=== PATIENT | female | born 1965 | race Caucasian/White ===

== ENCOUNTER → 2017-10-04 | Outpatient (CLI) | payer OTHER ==
[~2017-10-04] MED LIST: ACET325 PO; CYCL10 PO; DIPH50 PO; HUMALOG KW200 UNIT/1 SC; HYDACE5 PO; IBUP200 PO; IBUP800; IBUP800 PO; INSULANPEN SC; LEVFLO500 PO; META800 PO; NAPR550 PO; OMEP20ER PO; OXYACE5T PO; OXYC5 PO; PRED10 PO; PROM25 PO; Percocet 5-3251 EACH PO; Prednisone20 MG PO; Prilosec Otc20 MG PO; QUET200 PO; Restoril15 MG PO; SULTRIDS PO; TAMS.4ER PO; TRAM50 PO; Ultram50 MG PO; Zithromax250 MG PO
[2017-10-04 15:15] LABS: Adenovirus F 40/41 Not Detected (NOT DETECT); Astrovirus Not Detected (NOT DETECT); Campylobacter Sp Not Detected (NOT DETECT); Cryptosporidium Not Detected (NOT DETECT); Cyclospora Cayetanensis Not Detected (NOT DETECT); E. Coli O157 Not Detected (NOT DETECT); Entamoeba Histolytica Not Detected (NOT DETECT); Enteroaggregative E. coli-EAEC Not Detected (NOT DETECT); Enteropathogenic E. coli-EPEC Not Detected (NOT DETECT); Enterotoxigenic E. coli-ETEC Not Detected (NOT DETECT); Giardia Lamblia Not Detected (NOT DETECT); Norovirus GI/GII Not Detected (NOT DETECT); Plesiomonas Shigelloides Not Detected (NOT DETECT); Rotavirus A Not Detected (NOT DETECT); Salmonella Sp Not Detected (NOT DETECT); Sapovirus Not Detected (NOT DETECT); Shiga Toxin-prod E. coli-STEC Not Detected (NOT DETECT); Shigella/Enteroin E. coli-EIEC Not Detected (NOT DETECT); Vibrio Cholerae Not Detected (NOT DETECT); Vibrio Sp Not Detected (NOT DETECT); Yersinia Enterocolitica Not Detected (NOT DETECT)
== END ==
LOC: LAB UCHC 06:30 → LAB SHORT 06:30 → LAB FUT 10-02 13:00 → EDSTATUS 10-02 13:00
PROVIDERS: Nurse Practitioner Adult Health
DX: R53.83 Other fatigue (principal); R19.7 Diarrhea, unspecified
CPT/HCPCS: 87507

== ENCOUNTER 2018-01-25 12:46 | Emergency (ER) | payer OTHER ==
[~2018-01-25] VITALS: Ht 147.3 cm; Wt 79.4 kg
[~2018-01-25 12:46] MED LIST changes: -HUMALOG KW200 UNIT/1 SC; -INSULANPEN SC; -LEVFLO500 PO; -PRED10 PO; -Prilosec Otc20 MG PO; -QUET200 PO; -TRAM50 PO; -Ultram50 MG PO
[2018-01-25] MEDS ORDERED: PROM25 PO (13:05)
[2018-01-25] MEDS ORDERED: QUET200 PO (13:05)
== END 2018-01-25 14:16 | disposition home or self-care (01) ==
LOC: ER 12:46
DX: L50.0 Allergic urticaria (principal); J44.9 Chronic obstructive pulmonary disease, unspecified; F17.200 Nicotine dependence, unspecified, uncomplicated; Z88.0 Allergy status to penicillin; Z88.5 Allergy status to narcotic agent; Z88.8 Allergy status to other drugs, medicaments and biological substances; Z79.899 Other long term (current) drug therapy
CPT/HCPCS: 36415; 96372; 99283; J1200

== ENCOUNTER 2018-01-31 22:52 | Emergency (ER) | payer OTHER ==
[~2018-01-31] VITALS: Ht 147.3 cm; Wt 79.4 kg
[~2018-01-31 22:52] MED LIST changes: +QUET200 PO
[2018-02-01] MEDS ORDERED: Ultram50 MG PO (16:13)
== END 2018-01-31 23:10 | disposition left against medical advice (07) ==
LOC: ER 22:52
DX: Z53.21 Procedure and treatment not carried out due to patient leaving prior to being seen by health care provider (principal)

== ENCOUNTER 2018-02-01 14:22 | Emergency (ER) | payer OTHER ==
[~2018-02-01] VITALS: Ht 147.3 cm; Wt 79.4 kg
[2018-02-01] MEDS ORDERED: Ultram50 MG PO (16:13)
== END 2018-02-01 16:32 | disposition home or self-care (01) ==
LOC: ER 14:22
DX: M79.661 Pain in right lower leg (principal); J44.9 Chronic obstructive pulmonary disease, unspecified; F17.200 Nicotine dependence, unspecified, uncomplicated; Z88.0 Allergy status to penicillin; Z88.5 Allergy status to narcotic agent; Z88.8 Allergy status to other drugs, medicaments and biological substances; Z79.899 Other long term (current) drug therapy
CPT/HCPCS: 93971; 99284

== ENCOUNTER 2018-07-24 15:43 | Inpatient (IN) | payer OTHER ==
[~2018-07-24] VITALS: Ht 147.3 cm; Wt 66.7 kg
[~2018-07-24 15:43] MED LIST changes: +HUMALOG KW200 UNIT/1 SC; +INSULANPEN SC; +LEVFLO500 PO; +PRED10 PO; +TRAM50 PO; +Ultram50 MG PO
[2018-07-24 16:22] LABS: BASOPHILS ABSOLUTE AUTO 0.04 K/mm3 (0.00-0.23); BASOPHILS PERCENT AUTO 0 % (0-2); EOSINOPHILS ABSOLUTE AUTO 0.18 K/mm3 (0.00-0.68); EOSINOPHILS PERCENT AUTO 2 % (0-6); IMMATURE GRAN ABSOLUTE AUTO 0.39 K/mm3 (0.00-0.10); IMMATURE GRAN PERCENT AUTO 3 % (0-1); LYMPHOCYTES ABSOLUTE AUTO 1.76 K/mm3 (0.84-5.20); LYMPHOCYTES PERCENT AUTO 15 % (21-46); MONOCYTES ABSOLUTE AUTO 0.66 K/mm3 (0.16-1.47); MONOCYTES PERCENT AUTO 6 % (4-13); Mean Corpuscular HGB 28.3 pg (26.0-34.0); Mean Corpuscular HGB Conc 30.3 g/dL (31.5-36.5); Mean Corpuscular Volume 94 fL (80-100); Mean Platelet Volume 9.7 fL (9.1-12.4); NEUTROPHILS ABSOLUTE AUTO 8.59 K/mm3 (1.96-9.15); NEUTROPHILS PERCENT AUTO 74 % (41-73); NRBC ABSOLUTE 0.04 K/mm3 (0.00-0.02); NRBC Auto 0.3 /100 WBC (0.0-0.2); Platelet Count 332 K/mm3 (150-400); RDW Coefficient Variation 19.9 % (11.7-14.2); RDW Standard Deviation 64.7 fL (35.1-46.3); Red Blood Cell Count 1.87 M/mm3 (3.80-5.20); White Blood Cell Count 11.62 K/mm3 (4.00-11.30)
[2018-07-24 16:27] LABS: Hematocrit 17.5 % (33.0-51.0); Hemoglobin 5.3 g/dL (11.5-16.0)
[2018-07-24 16:53] LABS: International Normalized Ratio 1.02; Prothrombin Time Results 10.5 Sec (9.7-11.5)
[2018-07-24 17:18] LABS: Alanine Aminotransfer (ALT/SGP 203 U/L (12-78); Albumin, Blood 2.2 g/dL (3.4-5.0); Albumin/Globulin Ratio 0.6 (0.8-1.8); Alk Phos 101 U/L (50-136); Anion Gap 10 mmol/L (6-16); Aspartate Aminotrans (AST/SGOT 233 U/L (12-37); Bilirubin, Total 0.3 mg/dL (0.1-1.0); Blood Urea Nitrogen 26 mg/dL (8-24); CO2, Blood 22 mmol/L (21-32); Calcium, Blood 7.9 mg/dL (8.5-10.1); Chloride, Blood 114 mmol/L (98-108); Globulin, Blood 3.7 g/dL (2.2-4.0); Glomerular Filtration Rate >60 (60-); Glucose, Blood 111 mg/dL (70-99); Sodium, Blood 146 mmol/L (136-145); Total Protein, Blood 5.9 g/dL (6.4-8.2)
[2018-07-24] MEDS ORDERED: Prilosec Otc20 MG PO (20:31)
[2018-07-24 21:23] LABS: U Amphetamine Screen Not Detected; U Barbituate Screen Not Detected; U Benzodiazapine Screen Not Detected; U Buprenorphine Screen Not Detected; U Cannabinoids Screen Not Detected; U Cocaine Screen Not Detected; U Methadone Screen Not Detected; U Methamphetamine Screen DETECTED; U Opiates Screen Not Detected; U Oxycodone Screen DETECTED; U Phencyclidine Screen Not Detected; U Propoxyphene Screen Not Detected
[2018-07-24 23:30] LABS: Influenza A Negative (NEGATIVE); Influenza B Negative (NEGATIVE)
[2018-07-25 07:00] LABS: Hematocrit 25.4 % (33.0-51.0); Hemoglobin 8.1 g/dL (11.5-16.0)
[2018-07-25 07:20] LABS: Alanine Aminotransfer (ALT/SGP 200 U/L (12-78); Albumin/Globulin Ratio 0.6 (0.8-1.8); Alk Phos 92 U/L (50-136); Anion Gap 7 mmol/L (6-16); Aspartate Aminotrans (AST/SGOT 214 U/L (12-37); Bilirubin, Total 0.7 mg/dL (0.1-1.0); Blood Urea Nitrogen 14 mg/dL (8-24); Bun/Creatinine Ratio 19.9 (12.0-20.0); CO2, Blood 22 mmol/L (21-32); Calcium, Blood 7.5 mg/dL (8.5-10.1); Chloride, Blood 115 mmol/L (98-108); Globulin, Blood 3.4 g/dL (2.2-4.0); Glomerular Filtration Rate >60 (60-); Glucose, Blood 85 mg/dL (70-99); Potassium, Blood 4.5 mmol/L (3.5-5.5); Sodium, Blood 144 mmol/L (136-145); Total Protein, Blood 5.4 g/dL (6.4-8.2)
[2018-07-25 13:07] LABS: Hemoglobin 8.1 g/dL (11.5-16.0)
[2018-07-25 17:39] LABS: Hemoglobin 8.1 g/dL (11.5-16.0)
[2018-07-25 23:12] LABS: Hematocrit 24.8 % (33.0-51.0); Hemoglobin 7.9 g/dL (11.5-16.0)
[2018-07-26 06:12] LABS: Hematocrit 24.6 % (33.0-51.0); Hemoglobin 7.9 g/dL (11.5-16.0)
[2018-07-26 06:30] LABS: Alanine Aminotransfer (ALT/SGP 225 U/L (12-78); Albumin/Globulin Ratio 0.6 (0.8-1.8); Alk Phos 129 U/L (50-136); Anion Gap 7 mmol/L (6-16); Aspartate Aminotrans (AST/SGOT 206 U/L (12-37); Bilirubin, Total 0.5 mg/dL (0.1-1.0); Blood Urea Nitrogen 11 mg/dL (8-24); Bun/Creatinine Ratio 14.6 (12.0-20.0); CO2, Blood 26 mmol/L (21-32); Calcium, Blood 7.6 mg/dL (8.5-10.1); Chloride, Blood 111 mmol/L (98-108); Creatinine, Blood 0.75 mg/dL (0.40-1.00); Globulin, Blood 3.6 g/dL (2.2-4.0); Glomerular Filtration Rate >60 (60-); Glucose, Blood 112 mg/dL (70-99); Potassium, Blood 3.7 mmol/L (3.5-5.5); Sodium, Blood 144 mmol/L (136-145); Total Protein, Blood 5.6 g/dL (6.4-8.2)
[2018-07-26 12:58] LABS: Hematocrit 24.9 % (33.0-51.0); Hemoglobin 7.9 g/dL (11.5-16.0)
[2018-07-27 05:08] LABS: Hematocrit 23.8 % (33.0-51.0); Hemoglobin 7.4 g/dL (11.5-16.0)
[2018-07-27 05:21] LABS: International Normalized Ratio 1.04; Prothrombin Time Results 10.7 Sec (9.7-11.5)
[2018-07-27 11:49] LABS: Hematocrit 25.2 % (33.0-51.0); Hemoglobin 7.7 g/dL (11.5-16.0)
[2018-07-27 22:51] LABS: Hematocrit 24.9 % (33.0-51.0); Hemoglobin 7.7 g/dL (11.5-16.0)
[2018-07-28 05:16] LABS: Hematocrit 23.3 % (33.0-51.0); Hemoglobin 7.1 g/dL (11.5-16.0)
[2018-07-28 10:26] LABS: Hematocrit 25.5 % (33.0-51.0); Hemoglobin 7.8 g/dL (11.5-16.0)
[2018-07-29 17:05] LABS: HCV LOG10 4.418 (.); HEPATITIS C QUANTITATION 26200 IU/mL (.)
== END 2018-07-28 14:29 | disposition home or self-care (01) | DRG 377 ==
LOC: ER 15:43 → PCU 15:44 → MEDS 07-25 15:02 → PCU 07-25 15:03 → MEDS 07-27 21:35 → ENPENDDIS 07-28 12:25 → MEDS 07-28 14:29
PROVIDERS: Emergency Medicine; Internal Medicine; Internal Medicine Gastroenterology; Physician Assistant
PROC: 0DB68ZX Excision of Stomach, Via Natural or Artificial Opening Endoscopic, Diagnostic (ICD-10-PCS; 2018-07-25)
PROC: 0DBA8ZX Excision of Jejunum, Via Natural or Artificial Opening Endoscopic, Diagnostic (ICD-10-PCS; 2018-07-25)
PROC: 30233N1 Transfusion of Nonautologous Red Blood Cells into Peripheral Vein, Percutaneous Approach (ICD-10-PCS; 2018-07-25)
PROC: 0DB98ZX Excision of Duodenum, Via Natural or Artificial Opening Endoscopic, Diagnostic (ICD-10-PCS; principal; 2018-07-25 16:00)
DX: K92.2 Gastrointestinal hemorrhage, unspecified (principal); J13 Pneumonia due to Streptococcus pneumoniae; D62 Acute posthemorrhagic anemia; R78.81 Bacteremia; R74.0 Nonspecific elevation of levels of transaminase and lactic acid dehydrogenase [LDH]; G89.29 Other chronic pain; E87.6 Hypokalemia; F17.210 Nicotine dependence, cigarettes, uncomplicated; J44.9 Chronic obstructive pulmonary disease, unspecified; R00.0 Tachycardia, unspecified; B19.20 Unspecified viral hepatitis C without hepatic coma; F15.10 Other stimulant abuse, uncomplicated
CPT/HCPCS: 36415; 36430; 71046; 80053; 81025; 82272; 82947; 83605; 85014; 85018; 85025; 85610; 86850; 86870; 86900; 86901; 86920; 87040; 87522; 87804; 93005; 93010; 96361; 96365; 96366; 96367; 96368; 96376; 99285-25; C9113; G0378; J0696; J1885; J1956; J2405; J3480; J7030; J7050; J7120; P9016

== ENCOUNTER 2018-10-17 18:37 | Observation (INO) | payer OTHER ==
[~2018-10-17] VITALS: Ht 147.3 cm; Wt 59.2 kg
[~2018-10-17 18:37] MED LIST changes: +Prilosec Otc20 MG PO
[2018-10-17] MEDS ORDERED: ACET325 PO (21:39)
[2018-10-17] MEDS ORDERED: IRON150C PO (21:39)
[2018-10-18 08:37] LABS: Hematocrit 44.3 % (33.0-51.0); Hemoglobin 14.1 g/dL (11.5-16.0); Mean Corpuscular HGB 26.6 pg (26.0-34.0); Mean Corpuscular HGB Conc 31.8 g/dL (31.5-36.5); Mean Corpuscular Volume 83 fL (80-100); Mean Platelet Volume 9.3 fL (9.1-12.4); Platelet Count 333 K/mm3 (150-400); RDW Coefficient Variation 14.1 % (11.7-14.2); RDW Standard Deviation 42.7 fL (35.1-46.3); Red Blood Cell Count 5.31 M/mm3 (3.80-5.20)
[2018-10-18 09:04] LABS: Alanine Aminotransfer (ALT/SGP 22 U/L (12-78); Albumin, Blood 3.9 g/dL (3.4-5.0); Albumin/Globulin Ratio 0.8 (0.8-1.8); Alk Phos 123 U/L (50-136); Anion Gap 12 mmol/L (6-16); Aspartate Aminotrans (AST/SGOT 21 U/L (12-37); Bilirubin, Total 0.5 mg/dL (0.1-1.0); Blood Urea Nitrogen 16 mg/dL (8-24); Bun/Creatinine Ratio 23.3 (12.0-20.0); CO2, Blood 22 mmol/L (21-32); Calcium, Blood 9.6 mg/dL (8.5-10.1); Chloride, Blood 113 mmol/L (98-108); Creatinine, Blood 0.69 mg/dL (0.40-1.00); Globulin, Blood 4.8 g/dL (2.2-4.0); Glomerular Filtration Rate >60 (60-); Glucose, Blood 67 mg/dL (70-99); Potassium, Blood 2.7 mmol/L (3.5-5.5); Sodium, Blood 147 mmol/L (136-145); Total Protein, Blood 8.7 g/dL (6.4-8.2)
--- NOTE | 2018-10-18 10:36 | NUR ---
INTO SDS VIA [employer].PT APPEARS ANXIOUS-VERY TALKATIVE. HISTORY AND ALLERGIES REVIEWED. NPO STATUS CONFIRMED.
--- NOTE | 2018-10-18 10:54 | NUR ---
10/18/18 1054 Katy Mcintyre History, Chart, Medications and Allergies reviewed before start of procedure. MAC CASE WITH DR. DUARTE
[2018-10-18] MEDS ORDERED: OMEPRAZOLE MAGN20 MG PO (16:17)
--- NOTE | 2018-10-18 16:18 | NUR ---
SUMMARY/DISCHARGE THIS AM PT WAS ACTIVELY VOMITING CLEAR WATERY FLUID, DX ESOPHAGEAL FOREIGN BODY, SHE STATE PEICE OF CHICKEN STUCK IN HER THROAT. SHE TOOK A SHOWER, STATE RESOLVED. DR IQBAL IN TO SEE HER STATE NEED FOR EGD TO DETERMINE POSSIBLE CAUSE OF BLOCKAGE. BACK TO ROOM, DAY SKEIN SPOOLER STATE NO BLOCKAGE FOUND, VSS. SHE HAS BEEN TOLERATING FL, DR IQBAL BACK TO SEE HER STATE SHE MAY GO HOME FROM [facility], CAUTION HER TO AVOID MEATS FOR A FEW DAYS & EAT SOFT FOODS. DR KENDRICK IN THIS AFTERNOON TO PROVIDE D/C ORDER. IV D/C INTACT. D/C INSTRUCT PROVIDED. DR IQBAL CALL IN NEW SCR[facility] TO [facility]/PT REQUEST.
== END 2018-10-18 16:49 | disposition home or self-care (01) ==
LOC: ER 18:37 → MEDS 18:38 → ER 10-18 05:04 → MEDS 10-18 05:07 → ENPENDDIS 10-18 15:53 → MEDS 10-18 16:49
PROVIDERS: Internal Medicine Gastroenterology; ADMIT Internal Medicine
PROC: 0DJ08ZZ Inspection of Upper Intestinal Tract, Via Natural or Artificial Opening Endoscopic (ICD-10-PCS; principal; 2018-10-18 10:00)
DX: T18.128A Food in esophagus causing other injury, initial encounter (principal); K29.70 Gastritis, unspecified, without bleeding; K22.10 Ulcer of esophagus without bleeding; J44.9 Chronic obstructive pulmonary disease, unspecified; B19.20 Unspecified viral hepatitis C without hepatic coma; F17.210 Nicotine dependence, cigarettes, uncomplicated; Z88.0 Allergy status to penicillin; Z88.6 Allergy status to analgesic agent; Z88.5 Allergy status to narcotic agent; Z88.8 Allergy status to other drugs, medicaments and biological substances; Z79.899 Other long term (current) drug therapy; Z85.41 Personal history of malignant neoplasm of cervix uteri
CPT/HCPCS: 74220; 80053; 85027; 96374; 96375; 96376; 99284-25; G0378; J1610; J2270; J2405; J7030; J7120

== ENCOUNTER 2018-11-24 18:33 | Emergency (ER) | payer OTHER ==
[~2018-11-24] VITALS: Ht 147.3 cm; Wt 63.5 kg
[~2018-11-24 18:33] MED LIST changes: +Augmentin 875-1 EACH PO; +IRON150C PO; +OMEPRAZOLE MAGN20 MG PO
[2018-11-25] MEDS ORDERED: LIDO700A20 TOP (14:30)
[2018-11-25] MEDS ORDERED: ONDA4ODT MM (14:30)
[2018-11-25] MEDS ORDERED: Prednisone20 MG PO (14:37)
== END 2018-11-24 20:14 | disposition left against medical advice (07) ==
LOC: ER 18:33
DX: Z53.21 Procedure and treatment not carried out due to patient leaving prior to being seen by health care provider (principal); M54.9 Dorsalgia, unspecified; M79.606 Pain in leg, unspecified

== ENCOUNTER 2018-11-25 13:31 | Emergency (ER) | payer OTHER ==
[~2018-11-25] VITALS: Ht 147.3 cm; Wt 61.7 kg
[2018-11-25] MEDS ORDERED: LIDO700A20 TOP (14:30)
[2018-11-25] MEDS ORDERED: ONDA4ODT MM (14:30)
[2018-11-25] MEDS ORDERED: Prednisone20 MG PO (14:37)
== END 2018-11-25 14:50 | disposition home or self-care (01) ==
LOC: ER 13:31
DX: M25.552 Pain in left hip (principal); J44.9 Chronic obstructive pulmonary disease, unspecified; F17.210 Nicotine dependence, cigarettes, uncomplicated; Z86.19 Personal history of other infectious and parasitic diseases; Z88.6 Allergy status to analgesic agent; Z88.8 Allergy status to other drugs, medicaments and biological substances; Z79.899 Other long term (current) drug therapy
CPT/HCPCS: 73502; 96372; 99283-25; J1885

== ENCOUNTER → 2019-03-26 | Outpatient (CLI) | payer OTHER ==
[~2019-03-26] MED LIST changes: +LIDO700A20 TOP; +ONDA4ODT MM
[2019-03-26 15:29] LABS: BASOPHILS ABSOLUTE AUTO 0.07 K/mm3 (0.00-0.23); BASOPHILS PERCENT AUTO 1 % (0-2); EOSINOPHILS ABSOLUTE AUTO 0.15 K/mm3 (0.00-0.68); EOSINOPHILS PERCENT AUTO 2 % (0-6); Hemoglobin 13.7 g/dL (11.5-16.0); IMMATURE GRAN ABSOLUTE AUTO 0.05 K/mm3 (0.00-0.10); IMMATURE GRAN PERCENT AUTO 1 % (0-1); LYMPHOCYTES ABSOLUTE AUTO 0.97 K/mm3 (0.84-5.20); LYMPHOCYTES PERCENT AUTO 11 % (21-46); MONOCYTES PERCENT AUTO 8 % (4-13); Mean Corpuscular HGB 29.4 pg (26.0-34.0); Mean Corpuscular HGB Conc 33.4 g/dL (31.5-36.5); Mean Corpuscular Volume 88 fL (80-100); Mean Platelet Volume 9.6 fL (9.1-12.4); NEUTROPHILS ABSOLUTE AUTO 7.12 K/mm3 (1.96-9.15); NEUTROPHILS PERCENT AUTO 79 % (41-73); Platelet Count 295 K/mm3 (150-400); RDW Coefficient Variation 13.5 % (11.7-14.2); RDW Standard Deviation 43.3 fL (35.1-46.3); Red Blood Cell Count 4.66 M/mm3 (3.80-5.20); White Blood Cell Count 9.06 K/mm3 (4.00-11.30)
[2019-03-26 15:40] LABS: Albumin, Blood 2.8 g/dL (3.4-5.0); Albumin/Globulin Ratio 0.5 (0.8-1.8); Bilirubin, Total 0.7 mg/dL (0.1-1.0); Bun/Creatinine Ratio 13.1 (12.0-20.0); Creatinine, Blood 0.99 mg/dL (0.40-1.00); Globulin, Blood 5.6 g/dL (2.2-4.0); Potassium, Blood 3.3 mmol/L (3.5-5.5); Total Protein, Blood 8.4 g/dL (6.4-8.2)
== END | disposition home or self-care (01) ==
LOC: LAB EV 15:22 → LAB SHORT 15:22
PROVIDERS: Family Medicine
DX: N39.0 Urinary tract infection, site not specified (principal)
CPT/HCPCS: 80053; 85025; 87077; 87086; 87186

== ENCOUNTER 2019-04-23 15:49 | Emergency (ER) | payer OTHER ==
[~2019-04-23] VITALS: Ht 147.3 cm; Wt 60.8 kg
[2019-04-23] MEDS ORDERED: Percocet 5-3251 EACH PO (17:11)
== END 2019-04-23 17:32 | disposition home or self-care (01) ==
LOC: ER 15:49
DX: M17.11 Unilateral primary osteoarthritis, right knee (principal); F17.210 Nicotine dependence, cigarettes, uncomplicated; J44.9 Chronic obstructive pulmonary disease, unspecified; Z88.5 Allergy status to narcotic agent; Z88.8 Allergy status to other drugs, medicaments and biological substances; Z85.41 Personal history of malignant neoplasm of cervix uteri
CPT/HCPCS: 73564; 99283-25

== ENCOUNTER 2019-05-28 14:22 | Emergency (ER) | payer OTHER ==
[~2019-05-28] VITALS: Ht 147.3 cm; Wt 59.0 kg
[2019-05-28] MEDS ORDERED: Ultram50 MG PO (15:34)
== END 2019-05-28 15:43 | disposition home or self-care (01) ==
LOC: ER 14:22
DX: S90.31XA Contusion of right foot, initial encounter (principal); F17.200 Nicotine dependence, unspecified, uncomplicated; Z85.41 Personal history of malignant neoplasm of cervix uteri; Z88.0 Allergy status to penicillin; Z88.5 Allergy status to narcotic agent; Z88.8 Allergy status to other drugs, medicaments and biological substances; X58.XXXA Exposure to other specified factors, initial encounter
CPT/HCPCS: 73630; 99283-25; A9270-GY

== ENCOUNTER 2019-06-23 18:34 | Emergency (ER) | payer OTHER ==
[~2019-06-23] VITALS: Ht 147.3 cm; Wt 59.9 kg
[2019-06-23 19:12] LABS: BASOPHILS ABSOLUTE AUTO 0.08 K/mm3 (0.00-0.23); BASOPHILS PERCENT AUTO 1 % (0-2); EOSINOPHILS ABSOLUTE AUTO 0.25 K/mm3 (0.00-0.68); EOSINOPHILS PERCENT AUTO 3 % (0-6); Hematocrit 42.5 % (33.0-51.0); Hemoglobin 13.5 g/dL (11.5-16.0); IMMATURE GRAN ABSOLUTE AUTO 0.03 K/mm3 (0.00-0.10); IMMATURE GRAN PERCENT AUTO 0 % (0-1); LYMPHOCYTES PERCENT AUTO 22 % (21-46); MONOCYTES ABSOLUTE AUTO 0.71 K/mm3 (0.16-1.47); MONOCYTES PERCENT AUTO 8 % (4-13); Mean Corpuscular HGB 28.6 pg (26.0-34.0); Mean Corpuscular HGB Conc 31.8 g/dL (31.5-36.5); Mean Corpuscular Volume 90 fL (80-100); Mean Platelet Volume 9.8 fL (9.1-12.4); NEUTROPHILS ABSOLUTE AUTO 6.24 K/mm3 (1.96-9.15); NEUTROPHILS PERCENT AUTO 66 % (41-73); Platelet Count 320 K/mm3 (150-400); RDW Coefficient Variation 13.8 % (11.7-14.2); RDW Standard Deviation 46.3 fL (35.1-46.3); Red Blood Cell Count 4.72 M/mm3 (3.80-5.20); White Blood Cell Count 9.41 K/mm3 (4.00-11.30)
[2019-06-23 19:42] LABS: Alanine Aminotransfer (ALT/SGP 133 U/L (12-78); Albumin, Blood 3.1 g/dL (3.4-5.0); Albumin/Globulin Ratio 0.6 (0.8-1.8); Alk Phos 130 U/L (50-136); Anion Gap 8 mmol/L (6-16); Aspartate Aminotrans (AST/SGOT 79 U/L (12-37); Bilirubin, Total 0.3 mg/dL (0.1-1.0); Blood Urea Nitrogen 11 mg/dL (8-24); Bun/Creatinine Ratio 13.5 (12.0-20.0); CO2, Blood 22 mmol/L (21-32); Calcium, Blood 8.8 mg/dL (8.5-10.1); Chloride, Blood 107 mmol/L (98-108); Creatinine, Blood 0.82 mg/dL (0.40-1.00); Globulin, Blood 4.9 g/dL (2.2-4.0); Glomerular Filtration Rate >60 (60-); Glucose, Blood 112 mg/dL (70-99); Potassium, Blood 3.6 mmol/L (3.5-5.5); Sodium, Blood 137 mmol/L (136-145); Troponin I <0.015 ng/mL (0.000-0.040)
[2019-06-23] MEDS ORDERED: Levaquin500 MG PO (23:05)
== END 2019-06-23 23:34 | disposition home or self-care (01) ==
LOC: ER 18:34
PROVIDERS: Physician Assistant
DX: J18.9 Pneumonia, unspecified organism (principal); F17.210 Nicotine dependence, cigarettes, uncomplicated; Z85.41 Personal history of malignant neoplasm of cervix uteri; Z88.0 Allergy status to penicillin; Z88.5 Allergy status to narcotic agent; Z88.8 Allergy status to other drugs, medicaments and biological substances; Z79.899 Other long term (current) drug therapy
CPT/HCPCS: 36415; 71046; 71260; 80053; 84484; 85025; 85379; 93005; 93010; 96374-59; 96375-59; 99285-25; A9270; A9270-GY; J2405; J3010; Q9967

== ENCOUNTER 2020-05-24 09:45 | Emergency (ER) | payer OTHER ==
[~2020-05-24] VITALS: Ht 177.8 cm; Wt 70.3 kg
[~2020-05-24 09:45] MED LIST changes: +Levaquin500 MG PO
[2020-05-24] MEDS ORDERED: TEMAZEPAM15 MG PO (10:00)
[2020-05-24] MEDS ORDERED: Flovent Disku100 MCG IH (10:02)
[2020-05-24] MEDS ORDERED: Ventolin/Prove6.7 GM INH (10:02)
[2020-05-24 12:01] LABS: BASOPHILS ABSOLUTE AUTO 0.07 K/mm3 (0.00-0.23); BASOPHILS PERCENT AUTO 1 % (0-2); EOSINOPHILS PERCENT AUTO 1 % (0-6); Hematocrit 39.1 % (33.0-51.0); Hemoglobin 12.3 g/dL (11.5-16.0); IMMATURE GRAN ABSOLUTE AUTO 0.05 K/mm3 (0.00-0.10); IMMATURE GRAN PERCENT AUTO 1 % (0-1); LYMPHOCYTES ABSOLUTE AUTO 1.61 K/mm3 (0.84-5.20); LYMPHOCYTES PERCENT AUTO 19 % (21-46); MONOCYTES ABSOLUTE AUTO 0.73 K/mm3 (0.16-1.47); MONOCYTES PERCENT AUTO 9 % (4-13); Mean Corpuscular HGB 28.4 pg (26.0-34.0); Mean Corpuscular HGB Conc 31.5 g/dL (31.5-36.5); Mean Corpuscular Volume 90 fL (80-100); Mean Platelet Volume 10.1 fL (9.1-12.4); NEUTROPHILS ABSOLUTE AUTO 5.98 K/mm3 (1.96-9.15); NEUTROPHILS PERCENT AUTO 70 % (41-73); Platelet Count 180 K/mm3 (150-400); RDW Coefficient Variation 13.1 % (11.7-14.2); RDW Standard Deviation 42.8 fL (35.1-46.3); Red Blood Cell Count 4.33 M/mm3 (3.80-5.20); White Blood Cell Count 8.54 K/mm3 (4.00-11.30)
[2020-05-24 12:19] LABS: Alanine Aminotransfer (ALT/SGP 57 U/L (12-78); Albumin, Blood 2.8 g/dL (3.4-5.0); Albumin/Globulin Ratio 0.6 (0.8-1.8); Alk Phos 108 U/L (50-136); Anion Gap 6 mmol/L (6-16); Aspartate Aminotrans (AST/SGOT 36 U/L (12-37); Bilirubin, Total 0.5 mg/dL (0.1-1.0); Blood Urea Nitrogen 8 mg/dL (8-24); CO2, Blood 24 mmol/L (21-32); Calcium, Blood 8.3 mg/dL (8.5-10.1); Chloride, Blood 111 mmol/L (98-108); Creatinine, Blood 0.57 mg/dL (0.40-1.00); Globulin, Blood 4.4 g/dL (2.2-4.0); Glomerular Filtration Rate >60 (60-); Glucose, Blood 118 mg/dL (70-99); Potassium, Blood 3.1 mmol/L (3.5-5.5); Sodium, Blood 141 mmol/L (136-145); Total Protein, Blood 7.2 g/dL (6.4-8.2)
[2020-05-24] MEDS ORDERED: Voltaren100 GM TOP (13:20)
== END 2020-05-24 13:39 | disposition home or self-care (01) ==
LOC: ER 09:45
PROVIDERS: Physician Assistant
DX: M25.561 Pain in right knee (principal); G89.29 Other chronic pain; J44.9 Chronic obstructive pulmonary disease, unspecified; F17.200 Nicotine dependence, unspecified, uncomplicated; Z88.0 Allergy status to penicillin; Z88.5 Allergy status to narcotic agent; Z88.8 Allergy status to other drugs, medicaments and biological substances; Z79.899 Other long term (current) drug therapy
CPT/HCPCS: 73562-RT; 73700; 80053; 85025; 99284-25; A9270

== ENCOUNTER 2021-06-30 18:52 | Inpatient (IN) | payer OTHER ==
[~2021-06-30] VITALS: Ht 147.3 cm; Wt 67.2 kg
[~2021-06-30 18:52] MED LIST changes: +Flovent Disku100 MCG IH; +TEMAZEPAM15 MG PO; +Ventolin/Prove6.7 GM INH; +Voltaren100 GM TOP
[2021-06-30 20:51] LABS: BASOPHILS ABSOLUTE AUTO 0.09 K/mm3 (0.00-0.23); BASOPHILS PERCENT AUTO 1 % (0-2); EOSINOPHILS ABSOLUTE AUTO 0.34 K/mm3 (0.00-0.68); EOSINOPHILS PERCENT AUTO 4 % (0-6); Hematocrit 42.5 % (33.0-51.0); Hemoglobin 14.2 g/dL (11.5-16.0); IMMATURE GRAN ABSOLUTE AUTO 0.04 K/mm3 (0.00-0.10); IMMATURE GRAN PERCENT AUTO 1 % (0-1); LYMPHOCYTES ABSOLUTE AUTO 1.84 K/mm3 (0.84-5.20); LYMPHOCYTES PERCENT AUTO 21 % (21-46); MONOCYTES ABSOLUTE AUTO 0.74 K/mm3 (0.16-1.47); MONOCYTES PERCENT AUTO 8 % (4-13); Mean Corpuscular HGB 29.1 pg (26.0-34.0); Mean Corpuscular HGB Conc 33.4 g/dL (31.5-36.5); Mean Corpuscular Volume 87 fL (80-100); Mean Platelet Volume 10.5 fL (9.1-12.4); NEUTROPHILS ABSOLUTE AUTO 5.74 K/mm3 (1.96-9.15); NEUTROPHILS PERCENT AUTO 65 % (41-73); Platelet Count 226 K/mm3 (150-400); RDW Coefficient Variation 13.7 % (11.7-14.2); RDW Standard Deviation 44.3 fL (35.1-46.3); Red Blood Cell Count 4.88 M/mm3 (3.80-5.20); White Blood Cell Count 8.79 K/mm3 (4.00-11.30)
[2021-06-30 21:16] LABS: Alanine Aminotransfer (ALT/SGP 56 U/L (12-78); Albumin, Blood 3.5 g/dL (3.4-5.0); Albumin/Globulin Ratio 0.8 (0.8-1.8); Alk Phos 113 U/L (50-136); Anion Gap 5 mmol/L (6-16); Aspartate Aminotrans (AST/SGOT 58 U/L (12-37); Bilirubin, Total 0.7 mg/dL (0.1-1.0); Blood Urea Nitrogen 11 mg/dL (8-24); Bun/Creatinine Ratio 16.4 (12.0-20.0); CO2, Blood 25 mmol/L (21-32); Calcium, Blood 9.5 mg/dL (8.5-10.1); Chloride, Blood 107 mmol/L (98-108); Creatinine, Blood 0.67 mg/dL (0.40-1.00); Globulin, Blood 4.6 g/dL (2.2-4.0); Glomerular Filtration Rate >60 (60-); Glucose, Blood 99 mg/dL (70-99); Sodium, Blood 137 mmol/L (136-145); Thyroid Stimulating Hormone 0.745 uIU/mL (0.360-4.800); Total Protein, Blood 8.1 g/dL (6.4-8.2)
[2021-06-30 22:12] LABS: WBC Count, Synovial Fluid 48600 /mm3 (0-180)
[2021-06-30 22:15] LABS: Lymphs, Synovial Fluid 1 % (0-15); Monocytes/Macrophages, Synovia 7 % (0-65); Neutrophils, Synovial Fluid 92 % (0-24)
[2021-06-30 22:29] LABS: Appearance, Synovial Fluid Hazy (Clear); Color, Synovial Fluid Yellow (None-P Yel)
[2021-06-30 22:30] LABS: RBC Count, Synovial Fluid 90 /mm3 (0-0)
[2021-06-30 23:37] LABS: Source, Urine Voided
[2021-06-30 23:58] LABS: Bilirubin, Urine Neg (Neg); Blood, Urine 2+ (Neg); Glucose Qualitative, Urine Neg (Neg); Ketones, Urine Neg (Neg); Leukocyte Esterase, Urine 1+ (Neg); Nitrite, Urine Neg (Neg); Protein, Urine Neg (Neg); Urobilinogen, Urine 1+ (Normal); pH, Urine 6.5 (5.0-8.0)
[2021-07-01 00:16] LABS: Appearance, Urine Clear (Clear); Color, Urine Yellow (P-Yellow); U Amphetamine Screen DETECTED; U Barbituate Screen Not Detected; U Benzodiazapine Screen Not Detected; U Buprenorphine Screen Not Detected; U Cannabinoids Screen Not Detected; U Cocaine Screen Not Detected; U Methadone Screen Not Detected; U Methamphetamine Screen DETECTED; U Opiates Screen DETECTED; U Oxycodone Screen Not Detected; U Phencyclidine Screen Not Detected; U Propoxyphene Screen Not Detected
[2021-07-01 00:17] LABS: Bacteria Few /hpf; Red Blood Cells, Urine 0-2 /hpf (0-2); Squamous Epithelial Cells Few /hpf (Few)
--- NOTE | 2021-07-01 02:20 | NUR ---
PT ARRIVED TO FLOOR FROM ER. PT A/O, VSS. RIGHT KNEE SWOLLEN, WARM TO PALP. PT REP SHE IS UNABLE TO BEAR WT ON LEG R/T PAIN. CAP REFILL WNL, PULSES PALPABLE, PT DENIES N/T. PT EDUCATED ON NPO STATUS, ORIENTED TO ROOM/CALL LIGHT. WILL MONITOR AND TX PER ORDERS.
[2021-07-01 02:57] LABS: Influenza A, PCR NEGATIVE (NEGATIVE); Influenza B, PCR NEGATIVE (NEGATIVE); Resp Syncytial Virus, PCR NEGATIVE (NEGATIVE); SARS-Cov-2 (COVID-19) PCR, MMC NEGATIVE (NEGATIVE)
--- NOTE | 2021-07-01 06:22 | NUR ---
PT VSS, APPEARED TO SLEEP FOR MOST OF TIME AFTER ARRIVAL TO FLOOR. RIGHT KNEE REMAINS SWOLLEN AND WARM TO PALP. PT DENIES N/T, CAP REFILL WNL. PT UP TO BSC W/1 ASSIST. NPO SINCE ARRIVING TO FLOOR.
[2021-07-01 07:28] LABS: BASOPHILS ABSOLUTE AUTO 0.07 K/mm3 (0.00-0.23); BASOPHILS PERCENT AUTO 1 % (0-2); EOSINOPHILS ABSOLUTE AUTO 0.32 K/mm3 (0.00-0.68); EOSINOPHILS PERCENT AUTO 5 % (0-6); Hematocrit 39.1 % (33.0-51.0); Hemoglobin 13.1 g/dL (11.5-16.0); IMMATURE GRAN ABSOLUTE AUTO 0.02 K/mm3 (0.00-0.10); IMMATURE GRAN PERCENT AUTO 0 % (0-1); LYMPHOCYTES ABSOLUTE AUTO 1.44 K/mm3 (0.84-5.20); LYMPHOCYTES PERCENT AUTO 20 % (21-46); MONOCYTES ABSOLUTE AUTO 0.64 K/mm3 (0.16-1.47); MONOCYTES PERCENT AUTO 9 % (4-13); Mean Corpuscular HGB 29.1 pg (26.0-34.0); Mean Corpuscular HGB Conc 33.5 g/dL (31.5-36.5); Mean Corpuscular Volume 87 fL (80-100); Mean Platelet Volume 10.1 fL (9.1-12.4); NEUTROPHILS ABSOLUTE AUTO 4.58 K/mm3 (1.96-9.15); NEUTROPHILS PERCENT AUTO 65 % (41-73); Platelet Count 205 K/mm3 (150-400); RDW Coefficient Variation 13.6 % (11.7-14.2); RDW Standard Deviation 43.4 fL (35.1-46.3); White Blood Cell Count 7.07 K/mm3 (4.00-11.30)
[2021-07-01 07:46] LABS: Alanine Aminotransfer (ALT/SGP 50 U/L (12-78); Albumin/Globulin Ratio 0.7 (0.8-1.8); Alk Phos 96 U/L (50-136); Anion Gap 4 mmol/L (6-16); Aspartate Aminotrans (AST/SGOT 35 U/L (12-37); Bilirubin, Total 0.9 mg/dL (0.1-1.0); Blood Urea Nitrogen 8 mg/dL (8-24); CO2, Blood 24 mmol/L (21-32); Calcium, Blood 8.7 mg/dL (8.5-10.1); Chloride, Blood 110 mmol/L (98-108); Creatinine, Blood 0.67 mg/dL (0.40-1.00); Globulin, Blood 4.2 g/dL (2.2-4.0); Glomerular Filtration Rate >60 (60-); Glucose, Blood 94 mg/dL (70-99); Potassium, Blood 3.5 mmol/L (3.5-5.5); Sodium, Blood 138 mmol/L (136-145); Total Protein, Blood 7.2 g/dL (6.4-8.2)
[2021-07-01 08:44] LABS: Body Fluid Crystals NEG (NEGATIVE)
--- NOTE | 2021-07-01 09:51 | NUR ---
INTO PACU FOR PREOP FROM SURG FLOOR. History, Chart, Medications and Allergies reviewed before start of procedure.Patient confirms NPO status and agrees with scheduled surgery. Surgical site prepped with 2% Chlorhexidine cloth wipe. Lungs clear T/O to Auscultation.
--- NOTE | 2021-07-01 12:03 | NUR ---
PT BACK IN ROOM POST-OP. PT AWAKENS TO PAIN WHEN HER RLE IS MOVED. PT HAS HEMOVAC DRAIN PRESENT TO R KNEE, DRAINING SEROSANGUINOUS DRAINAGE. RLE ELEVATED ON A PILLOW, POLAR PACK IN PLACE. REST RATE EVEN AND UNLABORED BUT SHALLOW. PT IS ON RA WITH O2 SATURATIONS IN THE MID 90'S. WILL CONTINUE TO MONITOR.
[2021-07-01 13:05] LABS: Body Fluid Crystals NEG (NEGATIVE)
[2021-07-01 13:17] LABS: WBC Count, Synovial Fluid 35180 /mm3 (0-180)
[2021-07-01 13:19] LABS: Appearance, Synovial Fluid Cloudy (Clear); Color, Synovial Fluid Pale Yellow (None-P Yel)
[2021-07-01 13:52] LABS: RBC Count, Synovial Fluid 4500 /mm3 (0-0)
[2021-07-01 14:32] LABS: Monocytes/Macrophages, Synovia 8 % (0-65); Neutrophils, Synovial Fluid 92 % (0-24)
--- NOTE | 2021-07-01 16:32 | NUR ---
SHIFT SUMMARY PT IS POD#0 FROM I&D WITH DR. DALAL. PAIN WAS MANAGED WITH DILAUDID BEFORE SURGERY AND PT HAS DENIED NEED FOR PAIN MEDICATION POST-OP. SHE DENIES PAIN WHILE AT REST. SS FLUID OUT OF HEMOVAC DRAIN. PT IS A 1 ASSIST WITH GAIT BELT AND WALKER WHEN OOB. PT TOLERATING PO. VSS. WILL MONITOR UNTIL REPORT TO NOC RN.
--- NOTE | 2021-07-01 18:39 | NUR ---
PT IS REQUESTING TO GO OUTSIDE AND SMOKE. SHE WAS EDUCATED ABOUT THE RISKS OF SMOKING. SHE WAS ALSO EDUCATED REGARDING THE NON-SMOKING POLICY ON THE HOSPITAL CAMPUS AND POSSIBLE CONSEQUENCES FOR DOING SO. SHE REQUESTED TO TALK WITH THE NURSING FINISH REPAIR WORKER REGARDING THE POLICY. JANEY RODRIGEZ RN NOTIFIED OF PT REQUEST. NICOTINE GUM AND PATCHES OFFERED. PT STATES THAT NICOTINE GUM AND PATCHES MAKE HER NAUSEATED. WILL CONTINUE TO MONITOR.
--- NOTE | 2021-07-01 18:45 | NUR ---
TACHYCARDIA PT REPORTS TACHYCARDIA IS NORMAL FOR HER. PT'S HR APPEARS TO HAVE INCREASING TREND SINCE ADMIT ALTHOUGH SHE HAS BEEN TACHYCARDIC AT TIME. PT IS SOMEWHAT AGGITATED T/O THE DAY. SHE HAS REPORTED ANXIETY ABOUT HER DOGS AND WITH FAMILY DYNAMICS. SHE IS ALSO AGGITATED THIS EVENING BECAUSE SHE IS WANTING TO GO OUT TO SMOKE, PT EDUCATED ABOUT NO SMOKING POLICY. OTHER VSS. WILL MONITOR UNTIL REPORT TO NOC RN.
--- NOTE | 2021-07-01 19:21 | NUR ---
DR. REAL ROUNDED THIS EVENING. SHE WAS NOTIFIED THAT PT HAS BEEN TACHYCARDIC THIS AFTERNOON/EVENING. DR. REAL WAS ALSO NOTIFIED THAT PT IS REQUESTING TO GO OUTSIDE AND SMOKE. DR. REAL GAVE VERBAL ORDER FOR CHANTIX IF PT WOULD LIKE. DISCUSSED THIS OPTION WITH THE PT. SHE REPORTS SHE HAS TRIED CHANTIX AND IT WAS NOT EFFECTIVE. SHE STATED IT MADE HER NAUSEATED AND SHE GAINED WEIGHT. ORDER FOR NICOTINE PATCH PRN RECEIVED FROM DR. REAL. PT CONTINUES TO DECLINE NICOTINE PATCH.
[2021-07-01 23:42] LABS: Vancomycin, Trough 6.7 ug/mL (5.0-10.0)
--- NOTE | 2021-07-02 07:37 | NUR ---
SHIFT SUMMARY POD1 R KNEE I&D, A/O X4, PT C/O NOT BEING ABLE TO GO OUTSIDE AND SMOKE, PT EDUCATED ON THIS FACILITY BEING A NO SMOKING CAMPUS AND SMOKING WOULD MEAN LEAVING THE PROPERTY, PT OFFERED NICOTINE GUM AND NICOTINE PATCH BOTH OF WHICH WERE DENIED, PT WAS REFUSING ALL CARE AT START OF SHIFT. HAD DISCUSSION c PT ABOUT THE IMPORTANCE OF STAYING HERE AND FINISHING TREATMENT TO IMPROVE HER RECOVERY RATE, PT WAS AGGREABLE AND DECIDED TO STAY AND COOPERATE c NURSING CARE, PT WAS MUCH MORE PLEASANT AFTER THIS DISCUSSION. PAIN CONTROLLED PER EMAR, TOLERATING DIET, 1 SBA TO BSC. NO OTHER EVENTS THIS SHIFT. CALL LIGHT IN REACH, REPORT GIVEN TO DAY RN.
[2021-07-02 08:04] LABS: BASOPHILS ABSOLUTE AUTO 0.01 K/mm3 (0.00-0.23); BASOPHILS PERCENT AUTO 0 % (0-2); EOSINOPHILS PERCENT AUTO 0 % (0-6); Hematocrit 34.4 % (33.0-51.0); Hemoglobin 11.6 g/dL (11.5-16.0); IMMATURE GRAN ABSOLUTE AUTO 0.07 K/mm3 (0.00-0.10); IMMATURE GRAN PERCENT AUTO 1 % (0-1); LYMPHOCYTES ABSOLUTE AUTO 1.21 K/mm3 (0.84-5.20); LYMPHOCYTES PERCENT AUTO 10 % (21-46); MONOCYTES ABSOLUTE AUTO 0.93 K/mm3 (0.16-1.47); MONOCYTES PERCENT AUTO 8 % (4-13); Mean Corpuscular HGB 29.1 pg (26.0-34.0); Mean Corpuscular HGB Conc 33.7 g/dL (31.5-36.5); Mean Corpuscular Volume 86 fL (80-100); Mean Platelet Volume 10.6 fL (9.1-12.4); NEUTROPHILS ABSOLUTE AUTO 9.68 K/mm3 (1.96-9.15); NEUTROPHILS PERCENT AUTO 81 % (41-73); Platelet Count 223 K/mm3 (150-400); RDW Coefficient Variation 13.4 % (11.7-14.2); RDW Standard Deviation 42.1 fL (35.1-46.3); Red Blood Cell Count 3.99 M/mm3 (3.80-5.20)
[2021-07-02 08:42] LABS: Anion Gap 7 mmol/L (6-16); Blood Urea Nitrogen 18 mg/dL (8-24); Bun/Creatinine Ratio 26.5 (12.0-20.0); CO2, Blood 22 mmol/L (21-32); Calcium, Blood 8.9 mg/dL (8.5-10.1); Chloride, Blood 111 mmol/L (98-108); Creatinine, Blood 0.68 mg/dL (0.40-1.00); Glomerular Filtration Rate >60 (60-); Glucose, Blood 143 mg/dL (70-99); Magnesium, Blood 2.1 mg/dL (1.6-2.4); Sodium, Blood 140 mmol/L (136-145)
--- NOTE | 2021-07-02 09:50 | NUR ---
CRITICAL LAB: NOTIFIED DR WESTFALL OF CRITICAL PLATELET VALUE OF 36. NO NEW ORDERS RECIEVED.
--- NOTE | 2021-07-02 10:02 | NUR ---
CRITICAL LAB DR HERNANDEZ NOTIFIED OF CRITICAL LAB OF POSITIVE BLOOD CULTURE WITH GRAM POSITIVE BACCILLI IN ONE BOTTLE. NO NEW ORDERS RECIEVED.
--- NOTE | 2021-07-02 11:01 | NUR ---
DR PENA TOOK DRAIN TO RIGHT KNEE OUT TODAY AT [facility], HE CHANGED THE DRESSING WELL. 60 ML SEROSANG DRAINAGE IN DRAIN AT TIME OF DC
--- NOTE | 2021-07-02 15:44 | NUR ---
PATIENT HAD A GOOD DAY TODAY. NO SIGNS OR SYMPTOMS ACUTE DISTRESS NOTED. CALL LIGHT AND WATER IN EASY REACH. ABLE TO MAKE NEEDS AND WANTS KNOWN. AAO X 4. IV ANTIBIOTICS CONTINUE, IV PATENT. UP TO BSC WITH NO ASSIST, ABLE TO PIVOT SELF. TOLERATES WELL. MEDICATED FOR PAIN PER ORDERS-SEE EMAR. DR PENA CHANGED DRESSING TO RIGHT KNEE THIS MORNING AND REMOVED DRAIN TO RIGHT KNEE. PATIENT TOELRATED WELL. WILL MONITOR.
[2021-07-02 22:36] LABS: Vancomycin, Trough 20.4 ug/mL (5.0-10.0)
--- NOTE | 2021-07-03 04:55 | NUR ---
SHIFT SUMMARY POD2 R KNEE I&D, A/O X4, VSS, PAIN WELL MANAGED PER EMAR, PT REPORTS DIFFICULTY c AMBULATION AND VOICED SOME CONCERNS ABOUT DISCHARD, PT REASSURED THAT CONCERNS WILL BE ADDRESSED PRIOR TO DISCHARGE, IV LOCATION CHANGED D/T REDNESS AROUND PRIOR IV SITE. PT WAS A LITTLE EMOTIONAL AT THE START OF THE SHIFT R/T PERSONAL ISSUES HAPPENING AT HOME BUT WAS ABLE TO GET IT SETTLED OUT. NO ACUTE EVENTS THIS SHIFT, CALL LIGHT IN REACH, WILL CTM AND REPORT TO DAY RN
[2021-07-03 05:07] LABS: BASOPHILS ABSOLUTE AUTO 0.09 K/mm3 (0.00-0.23); BASOPHILS PERCENT AUTO 1 % (0-2); EOSINOPHILS ABSOLUTE AUTO 0.14 K/mm3 (0.00-0.68); EOSINOPHILS PERCENT AUTO 2 % (0-6); Hematocrit 37.6 % (33.0-51.0); Hemoglobin 12.4 g/dL (11.5-16.0); IMMATURE GRAN ABSOLUTE AUTO 0.04 K/mm3 (0.00-0.10); IMMATURE GRAN PERCENT AUTO 0 % (0-1); LYMPHOCYTES ABSOLUTE AUTO 2.23 K/mm3 (0.84-5.20); LYMPHOCYTES PERCENT AUTO 24 % (21-46); MONOCYTES ABSOLUTE AUTO 0.64 K/mm3 (0.16-1.47); MONOCYTES PERCENT AUTO 7 % (4-13); Mean Corpuscular HGB 28.9 pg (26.0-34.0); Mean Corpuscular Volume 88 fL (80-100); Mean Platelet Volume 10.5 fL (9.1-12.4); NEUTROPHILS ABSOLUTE AUTO 6.09 K/mm3 (1.96-9.15); NEUTROPHILS PERCENT AUTO 66 % (41-73); Platelet Count 260 K/mm3 (150-400); RDW Standard Deviation 45.1 fL (35.1-46.3); Red Blood Cell Count 4.29 M/mm3 (3.80-5.20); White Blood Cell Count 9.23 K/mm3 (4.00-11.30)
[2021-07-03 05:59] LABS: Anion Gap 10 mmol/L (6-16); Blood Urea Nitrogen 20 mg/dL (8-24); Bun/Creatinine Ratio 24.1 (12.0-20.0); CO2, Blood 21 mmol/L (21-32); Calcium, Blood 8.8 mg/dL (8.5-10.1); Chloride, Blood 112 mmol/L (98-108); Creatinine, Blood 0.83 mg/dL (0.40-1.00); Glomerular Filtration Rate >60 (60-); Glucose, Blood 104 mg/dL (70-99); Potassium, Blood 3.8 mmol/L (3.5-5.5); Sodium, Blood 143 mmol/L (136-145)
--- NOTE | 2021-07-03 08:54 | NUR ---
PATIENT AWAKE AND ALERT THIS MORNING. NO SIGNS OR SYMPTOMS ACUTE DISTRESS NOTED. CALL LIGHT AND WATER IN EASY REACH. ABLE TO MAKE NEEDS AND WANTS KNOWN.
[2021-07-03] MEDS ORDERED: DOXY100 PO (13:36)
[2021-07-03] MEDS ORDERED: OXAYDO5 M2 PO (13:38)
--- NOTE | 2021-07-03 16:24 | NUR ---
DISCHARGE: DISCHARGE INSTUCTIONS GIVEN TO PATIENT. PATIENT VERBALIZED UNDERSTANDING OF DC INSTUCTIONS. WALKER DELIVERED TO ROOM.
== END 2021-07-03 17:00 | disposition home or self-care (01) | DRG 550 ==
LOC: ER 18:52 → ERHOLD 18:53 → SURS 18:53 → ERHOLD 18:53 → SURS 07-01 01:14
PROVIDERS: Emergency Medicine; Internal Medicine; Orthopaedic Surgery; Student in an Organized Health Care Education/Training Program; ADMIT Internal Medicine
PROC: 0S9C4ZZ Drainage of Right Knee Joint, Percutaneous Endoscopic Approach (ICD-10-PCS; principal; 2021-07-01 10:00)
DX: M00.9 Pyogenic arthritis, unspecified (principal); M17.31 Unilateral post-traumatic osteoarthritis, right knee; Z20.822 Contact with and (suspected) exposure to COVID-19; J44.9 Chronic obstructive pulmonary disease, unspecified; F15.10 Other stimulant abuse, uncomplicated; F11.10 Opioid abuse, uncomplicated; Z85.41 Personal history of malignant neoplasm of cervix uteri; Z86.19 Personal history of other infectious and parasitic diseases; Z98.890 Other specified postprocedural states; Z88.5 Allergy status to narcotic agent; Z88.0 Allergy status to penicillin; Z88.6 Allergy status to analgesic agent; Z88.8 Allergy status to other drugs, medicaments and biological substances; Z79.899 Other long term (current) drug therapy; Z79.51 Long term (current) use of inhaled steroids; Z71.6 Tobacco abuse counseling; Z91.048 Other nonmedicinal substance allergy status
CPT/HCPCS: 0241U; 20611; 36415; 71045; 73562-RT; 80048; 80053; 80202; 81001; 83605; 83735; 84443; 85025; 85651; 86140; 87040; 87070; 87075; 87086; 87205; 89051; 89060; 93005; 93010; 93971; 94760; 96365; 96367; 96375; 96376; 97161; 97165; 97530; 97535; 99284-25; A9270; G0378; J1100; J1170; J1650; J2250; J2405; J2704; J3010; J3370; J7050; J7120

== ENCOUNTER 2021-08-17 21:42 | Emergency (ER) | payer OTHER ==
[~2021-08-17] VITALS: Ht 147.3 cm; Wt 66.2 kg
[~2021-08-17 21:42] MED LIST changes: +DOXY100 PO; +OXAYDO5 M2 PO
== END 2021-08-18 00:10 | disposition left against medical advice (07) ==
LOC: ER 21:42
DX: M25.561 Pain in right knee (principal); Z53.21 Procedure and treatment not carried out due to patient leaving prior to being seen by health care provider
CPT/HCPCS: 73562-RT; 99283-25

== ENCOUNTER 2021-11-16 18:27 | Emergency (ER) | payer OTHER ==
[~2021-11-16] VITALS: Ht 147.3 cm; Wt 63.5 kg
== END 2021-11-16 21:54 | disposition home or self-care (01) ==
LOC: ER 18:27
DX: S46.001A Unspecified injury of muscle(s) and tendon(s) of the rotator cuff of right shoulder, initial encounter (principal); M19.90 Unspecified osteoarthritis, unspecified site; X58.XXXA Exposure to other specified factors, initial encounter; Z88.0 Allergy status to penicillin; Z88.5 Allergy status to narcotic agent; Z88.6 Allergy status to analgesic agent; Z91.040 Latex allergy status; Z79.899 Other long term (current) drug therapy; F17.210 Nicotine dependence, cigarettes, uncomplicated
CPT/HCPCS: 73030; 99283-25; A9270

== ENCOUNTER → 2022-02-28 | Outpatient (CLI) | payer OTHER | END | disposition home or self-care (01) | LOC: LAB SHORT 16:00 | DX: L03.115 Cellulitis of right lower limb (principal) | CPT/HCPCS: 87070; 87075; 87077; 87186; 87205 ==

== ENCOUNTER 2022-10-01 03:54 | Emergency (ER) | payer OTHER ==
[~2022-10-01] VITALS: Ht 167.6 cm; Wt 74.8 kg
== END 2022-10-01 06:24 | disposition home or self-care (01) ==
LOC: ER 03:54
DX: S83.92XA Sprain of unspecified site of left knee, initial encounter (principal); J44.9 Chronic obstructive pulmonary disease, unspecified; F17.210 Nicotine dependence, cigarettes, uncomplicated; X50.1XXA Overexertion from prolonged static or awkward postures, initial encounter
CPT/HCPCS: 73562-LT; 99283-25; A9270

== ENCOUNTER 2023-09-22 15:53 | Emergency (ER) | payer OTHER ==
[~2023-09-22] VITALS: Ht 147.3 cm; Wt 70.3 kg
[2023-09-22 16:09] VITALS: BP 115/89
[2023-09-22 17:04] LABS: Influenza A, PCR NEGATIVE (NEGATIVE); Influenza B, PCR NEGATIVE (NEGATIVE); Resp Syncytial Virus, PCR NEGATIVE (NEGATIVE); SARS-Cov-2 (COVID-19) PCR, MMC NEGATIVE (NEGATIVE)
[2023-09-22] MEDS ORDERED: Ketorolac Tromethamine 30mg Vial IM ONE (18:05)
== END 2023-09-22 18:57 | disposition home or self-care (01) ==
LOC: ER 15:53
PROVIDERS: Student in an Organized Health Care Education/Training Program
DX: M50.30 Other cervical disc degeneration, unspecified cervical region (principal); M17.11 Unilateral primary osteoarthritis, right knee; M47.812 Spondylosis without myelopathy or radiculopathy, cervical region; J44.9 Chronic obstructive pulmonary disease, unspecified; F17.210 Nicotine dependence, cigarettes, uncomplicated; Z11.52 Encounter for screening for COVID-19; Z88.0 Allergy status to penicillin; Z88.5 Allergy status to narcotic agent; Z88.6 Allergy status to analgesic agent; Z91.048 Other nonmedicinal substance allergy status; Z88.8 Allergy status to other drugs, medicaments and biological substances; Z91.030 Bee allergy status
CPT/HCPCS: 0241U; 72040; 73562-RT; 96372; 99283-25; J1885

== ENCOUNTER 2023-11-09 21:49 | Emergency (ER) | payer OTHER ==
[~2023-11-09] VITALS: Ht 149.9 cm; Wt 70.3 kg
[2023-11-09 22:23] LABS: BASOPHILS ABSOLUTE AUTO 0.07 K/mm3 (0.00-0.23); BASOPHILS PERCENT AUTO 0 % (0-2); EOSINOPHILS PERCENT AUTO 1 % (0-6); Hematocrit 39.9 % (33.0-51.0); Hemoglobin 13.7 g/dL (11.5-16.0); IMMATURE GRAN ABSOLUTE AUTO 0.11 K/mm3 (0.00-0.10); IMMATURE GRAN PERCENT AUTO 1 % (0-1); LYMPHOCYTES ABSOLUTE AUTO 1.73 K/mm3 (0.84-5.20); LYMPHOCYTES PERCENT AUTO 11 % (21-46); MONOCYTES PERCENT AUTO 5 % (4-13); Mean Corpuscular HGB 27.6 pg (26.0-34.0); Mean Corpuscular HGB Conc 34.3 g/dL (31.5-36.5); Mean Corpuscular Volume 80 fL (80-100); Mean Platelet Volume 9.3 fL (9.1-12.4); NEUTROPHILS ABSOLUTE AUTO 13.09 K/mm3 (1.96-9.15); NEUTROPHILS PERCENT AUTO 82 % (41-73); Platelet Count 437 K/mm3 (150-400); RDW Coefficient Variation 14.1 % (11.7-14.2); Red Blood Cell Count 4.96 M/mm3 (3.80-5.20)
[2023-11-09] MEDS ORDERED: MELO7.5 PO (22:25)
[2023-11-09] MEDS ORDERED: ASPIRIN REGIMEN81 MG PO (22:25)
[2023-11-09] MEDS ORDERED: Ventolin/Prove6.7 GM (22:26)
[2023-11-09] MEDS ORDERED: DICLOFENAC SODI50 GM TOP (22:26)
[2023-11-09] MEDS ORDERED: MethylPREDNISolone Sod Succ 125 MG Vial IV ONE (22:40)
[2023-11-09] MEDS ORDERED: Ipratropium/Albuterol SulF 2.5-0.5MG/3 ML Amp INH ONE (22:40)
[2023-11-09] MEDS ORDERED: NS 1,000 ML IV SCH (22:40)
[2023-11-09 22:41] LABS: Albumin/Globulin Ratio 0.6 (0.8-1.8); Bilirubin, Total 0.7 mg/dL (0.1-1.0); Bun/Creatinine Ratio 14.9 (12.0-20.0); Calcium, Blood 9.3 mg/dL (8.5-10.1); Creatinine, Blood 0.67 mg/dL (0.40-1.00); Globulin, Blood 5.3 g/dL (2.2-4.0); Potassium, Blood 3.2 mmol/L (3.5-5.5); Total Protein, Blood 8.3 g/dL (6.4-8.2)
[2023-11-09] MEDS ORDERED: Potassium Chloride 20 MEQ TabCR PO ONE (23:25)
[2023-11-09 23:30] VITALS: BP 111/69
[2023-11-09 23:45] LABS: Influenza A, PCR NEGATIVE (NEGATIVE); Influenza B, PCR NEGATIVE (NEGATIVE); Resp Syncytial Virus, PCR NEGATIVE (NEGATIVE); SARS-Cov-2 (COVID-19) PCR, MMC NEGATIVE (NEGATIVE)
[2023-11-09] MEDS ORDERED: Acetaminophen 325 MG TABLET PO ONE (23:45)
[2023-11-10] MEDS ORDERED: Azithromycin 250 MG Tab PO ONE (00:05)
[2023-11-10] MEDS ORDERED: CefTRIAXone Sodium 1,000 MG in NS 50 ML IV ONE (00:05)
[2023-11-10] MEDS ORDERED: CEFP200 PO (00:22)
[2023-11-10] MEDS ORDERED: PRED20 PO (00:22)
[2023-11-10] MEDS ORDERED: AZIT250 PO (00:22)
[2023-11-10] MEDS ORDERED: RX Prepack Albuterol 1 PREPACK/6.7 GM INH UD ONE (00:25)
== END 2023-11-10 00:38 | disposition home or self-care (01) ==
LOC: ER 21:49
PROVIDERS: Emergency Medicine; Student in an Organized Health Care Education/Training Program
DX: J18.9 Pneumonia, unspecified organism (principal); R06.02 Shortness of breath; E87.6 Hypokalemia; D72.829 Elevated white blood cell count, unspecified; Z88.0 Allergy status to penicillin; Z88.5 Allergy status to narcotic agent; Z88.6 Allergy status to analgesic agent; Z91.048 Other nonmedicinal substance allergy status; Z79.899 Other long term (current) drug therapy; Z79.82 Long term (current) use of aspirin; J44.9 Chronic obstructive pulmonary disease, unspecified; Z87.891 Personal history of nicotine dependence
CPT/HCPCS: 0241U; 71046; 80053; 85025; 93005; 93010; 94640; 94664; 96361; 96365; 96375; 99285-25; A9270; J0696; J2930; J7030

== ENCOUNTER 2024-02-01 20:45 | Emergency (ER) | payer OTHER ==
[~2024-02-01] VITALS: Ht 162.6 cm; Wt 59.0 kg
[~2024-02-01 20:45] MED LIST changes: +ASPIRIN REGIMEN81 MG PO; +AZIT250 PO; +CEFP200 PO; +DICLOFENAC SODI50 GM TOP; +MELO7.5 PO; +PRED20 PO; +Ventolin/Prove6.7 GM
[2024-02-01 20:52] VITALS: BP 133/80
== END 2024-02-01 21:01 | disposition left against medical advice (07) ==
LOC: ER 20:45
DX: M25.561 Pain in right knee (principal); Y08.02XA Assault by strike by baseball bat, initial encounter; Z53.21 Procedure and treatment not carried out due to patient leaving prior to being seen by health care provider
CPT/HCPCS: 73562-RT; 99281-25

== ENCOUNTER 2024-02-02 03:34 | Emergency (ER) | payer OTHER ==
[~2024-02-02] VITALS: Ht 147.3 cm; Wt 70.3 kg
[2024-02-02] MEDS ORDERED: Ketorolac Tromethamine 30mg Vial IV ONE (06:30)
[2024-02-02] MEDS ORDERED: Ondansetron HCl 2 MG / ML 2ML Vial IV ONE (06:30)
[2024-02-02] MEDS ORDERED: LORazepam 2 MG/ML 1ML Injection IV ONE ×2 (06:35→07:55)
[2024-02-02 07:37] LABS: Albumin, Blood 3.7 g/dL (3.4-5.0); Albumin/Globulin Ratio 0.9 (0.8-1.8); Bun/Creatinine Ratio 25.2 (12.0-20.0); Calcium, Blood 8.8 mg/dL (8.5-10.1); Creatinine, Blood 0.63 mg/dL (0.40-1.00); Globulin, Blood 4.3 g/dL (2.2-4.0); Potassium, Blood 3.7 mmol/L (3.5-5.5)
[2024-02-02 14:30] VITALS: BP 130/79
== END 2024-02-02 14:43 | disposition home or self-care (01) ==
LOC: ER 03:34
PROVIDERS: Emergency Medicine
DX: S80.01XA Contusion of right knee, initial encounter (principal); M17.11 Unilateral primary osteoarthritis, right knee; F15.10 Other stimulant abuse, uncomplicated; J44.9 Chronic obstructive pulmonary disease, unspecified; F17.200 Nicotine dependence, unspecified, uncomplicated; W22.8XXA Striking against or struck by other objects, initial encounter; Z88.0 Allergy status to penicillin; Z88.5 Allergy status to narcotic agent; Z88.6 Allergy status to analgesic agent; Z88.8 Allergy status to other drugs, medicaments and biological substances; Z79.82 Long term (current) use of aspirin; Z79.52 Long term (current) use of systemic steroids; Z79.899 Other long term (current) drug therapy
CPT/HCPCS: 80053; 96374; 96375; 96376; 99283-25; J1885; J2060; J2405